=== PATIENT | female | born 1965 | race Caucasian/White ===

== ENCOUNTER → 2016-10-08 | Outpatient (CLI) | payer BC ==
[~2016-10-08] MED LIST: ASPI-131 PO; BUTA-253 PO; FEXO1TAB11 PO; LEVO25TA9 PO; LISI-625 PO
== END ==
LOC: WC.BC 07:53
DX: Z12.31 Encounter for screening mammogram for malignant neoplasm of breast (principal)
CPT/HCPCS: 77063; G0202